=== PATIENT | female | born 1975 | race Caucasian/White ===

== ENCOUNTER 2018-10-24 16:33 | Emergency (ER) | payer SELFPAY ==
[~2018-10-24] VITALS: Ht 157.5 cm; Wt 63.5 kg
[2018-10-24] MEDS ORDERED: IV NORMAL SALINE 1000ML BAG 1,000 ML IV ONE ×2 (17:15)
[2018-10-24 17:21] LABS: BASO # 0.1 x10^3/uL (0.0-0.2); BASO % 1 % (0-3); EOS % 1 % (0-3); HEMATOCRIT 34.7 % (36.0-47.0); HEMOGLOBIN 11.7 g/dL (12.0-15.5); LYMPH # 1.3 x10^3/uL (1.0-4.8); LYMPH % 21 % (24-48); MEAN CORPUSCULAR HEMOGLOBIN 31 pg (25-35); MEAN CORPUSCULAR HGB CONC 34 g/dL (31-37); MEAN CORPUSCULAR VOLUME 90 fL (79-100); MONO # 0.7 x10^3/uL (0.0-1.1); MONO % 12 % (0-9); NEUT # 3.9 x10^3uL (1.8-7.7); NEUT % 65 % (31-73); PLATELET COUNT 382 x10^3/uL (140-400); RED BLOOD COUNT 3.84 x10^6/uL (3.50-5.40); RED CELL DISTRIBUTION WIDTH 13.2 % (11.5-14.5)
[2018-10-24 17:23] LABS: BILIRUBIN,URINE NEGATIVE (NEG); CLARITY,URINE CLEAR; COLOR,URINE YELLOW; NITRITE,URINE NEGATIVE (NEG); PROTEIN,URINE NEGATIVE (NEG-TRACE)
--- NOTE | 2018-10-24 17:25 | PHYS DOC ---
Adult General Chief Complaint Chief Complaint: HALLUCINATIONS AUDIBLE/VISUAL HPI HPI 43-year-old female presents to ER for complaints of visual and auditory hallucinations. Patient states she has history of bipolar and PTSD and last week was started on risperidone and propanolol. Patient states over the past week she has had hallucinations start denying any voices telling her to harm herself or others. Patient states she has had increased anxiety, decreased appetite, and restlessness at night. Patient states she is seeing things that are not there. Pt's significant other Mauro is at bedside and reports pt has been confused on events- he denies lethargy or decreased LOC. He reports she has just saying things that aren't correct and then when he informs her of this she realizes she wasn't making sense with what she had said. Pt denies fever, urinary sxs, or CP/palpitations. She denies any recent travel. She denies any suicidal ideations. She denies past history of suicidal attempts or ideations. LMP 1 week ago. Patient denies any alcohol or illicit drug use. Patient states she vapes daily. Pt has c/o rt leg injury last week- she reports she was kicking a soccer ball and fell and since has had rt leg bruising to inner right thigh with swelling/pain in extremity. She denies striking her head or having any head/neck/back pain. (LATIA SINGLETON APRN) Review of Systems Review of Systems Constitutional: Denies fever or chills [] Eyes: Denies change in visual acuity, redness, or eye pain [] HENT: Denies nasal congestion or sore throat [] Respiratory: Denies cough or shortness of breath [] Cardiovascular: No additional information not addressed in HPI [] GI: Denies abdominal pain, nausea, vomiting, bloody stools or diarrhea [] : Denies dysuria or hematuria [] Musculoskeletal: Denies back pain. Reports rt upper inner thigh pain/bruising/swelling Integument: Denies rash or skin lesions [] Neurologic: Denies headache, focal weakness or sensory changes [] Endocrine: Denies polyuria or polydipsia [] Psych: Reports auditory/visual hallucinations. Reports increased anxiety/sleep pattern disturbances. Denies SI/HI All other systems were reviewed and found to be within normal limits, except as documented in this note. (LATIA SINGLETON APRN) Current Medications Current Medications Current Medications Medications (Trade) Dose Ordered Sig/Thanh Start Time Stop Time Status Last Admin Dose Admin Lorazepam (Ativan) 1 mg 1X ONCE 10/24/18 17:15 10/24/18 17:21 DC 10/24/18 17:39 1 MG Potassium Chloride (Klor-Con) 40 meq 1X ONCE 10/24/18 19:00 10/24/18 19:01 DC 10/24/18 19:18 40 MEQ Sodium Chloride 1,000 ml @ 1,000 mls/hr 1X ONCE 10/24/18 17:15 10/24/18 18:14 DC 10/24/18 18:30 1,000 MLS/HR (JIMENA BRANDT MD) Allergies Allergies Allergies Coded Allergies Type Severity Reaction Last Updated Verified No Known Drug Allergies 10/24/18 No (JIMENA BRANDT MD) Physical Exam Physical Exam Constitutional: Well developed, well nourished, no acute distress, non-toxic appearance. [] HENT: Normocephalic, atraumatic, bilateral ears normal, mucous membranes pink/d ry, no oral exudates, nose normal. [] Eyes: PERRLA, no nystagmus, conjunctiva normal, no discharge. [] Neck: Normal range of motion, no tenderness, supple, no stridor. [] Cardiovascular: Tachycardic heart rate regular rhythm, no murmur [] Lungs & Thorax: Bilateral breath sounds clear to auscultation- resp. equal /nonlabored Abdomen: Bowel sounds normal, soft, no tenderness/distention, no masses, no pulsatile masses. [] Skin: Warm, dry, no erythema, no rash. [] Back: No tenderness, no CVA tenderness. [] Extremities: No tenderness, no cyanosis, no clubbing, ROM intact, no edema. [] Neurologic: Alert and oriented X 3, normal motor function, normal sensory function, no focal deficits noted. [] Psychologic: Affect normal, judgement normal, anxious/restless during exam- cooperative and no uncontrollable behavior (LATIA SINGLETON APRN) Current Patient Data Vital Signs Vital Signs Date Time Temp Pulse Resp B/P (MAP) Pulse Ox O2 Delivery O2 Flow Rate FiO2 10/24/18 19:45 119 17 113/77 (89) 98 Room Air 10/24/18 17:00 98.3 98.3 (JIMENA BRANDT MD) Lab Values Laboratory Tests Test 10/24/18 16:45 10/24/18 17:15 Urine Collection Type Unknown Urine Color Yellow Urine Clarity Clear Urine pH 6.0 Urine Specific [place] 1.025 Urine Protein Negative mg/dL (NEG-TRACE) Urine Glucose (UA) Negative mg/dL (NEG) Urine Ketones (Stick) Trace mg/dL (NEG) Urine Blood Negative (NEG) Urine Nitrite Negative (NEG) Urine Bilirubin Negative (NEG) Urine Urobilinogen Dipstick 1.0 mg/dL (0.2 mg/dL) Urine Leukocyte Esterase Small (NEG) Urine RBC 0 /HPF (0-2) Urine WBC 1-4 /HPF (0-4) Urine Squamous Epithelial Cells Many /LPF Urine Bacteria Moderate /HPF (0-FEW) Urine Mucus Marked /LPF Urine Test Negative (NEG) Urine Opiates Screen Neg (NEG) Urine Methadone Screen Neg (NEG) Urine Barbiturates Neg (NEG) Urine Phencyclidine Screen Neg (NEG) Urine Amphetamine/Methamphetamine Pos (NEG) Urine Benzodiazepines Screen Neg (NEG) Urine Cocaine Screen Neg (NEG) Urine Cannabinoids Screen Neg (NEG) Urine Ethyl Alcohol Neg (NEG) White Blood Count 6.0 x10^3/uL (4.0-11.0) Red Blood Count 3.84 x10^6/uL (3.50-5.40) Hemoglobin 11.7 g/dL (12.0-15.5) L Hematocrit 34.7 % (36.0-47.0) L Mean Corpuscular Volume 90 fL (79-100) Mean Corpuscular Hemoglobin 31 pg (25-35) Mean Corpuscular Hemoglobin Concent 34 g/dL (31-37) Red Cell Distribution Width 13.2 % (11.5-14.5) Platelet Count 382 x10^3/uL (140-400) Neutrophils (%) (Auto) 65 % (31-73) Lymphocytes (%) (Auto) 21 % (24-48) L Monocytes (%) (Auto) 12 % (0-9) H Eosinophils (%) (Auto) 1 % (0-3) Basophils (%) (Auto) 1 % (0-3) Neutrophils # (Auto) 3.9 x10^3uL (1.8-7.7) Lymphocytes # (Auto) 1.3 x10^3/uL (1.0-4.8) Monocytes # (Auto) 0.7 x10^3/uL (0.0-1.1) Eosinophils # (Auto) 0.0 x10^3/uL (0.0-0.7) Basophils # (Auto) 0.1 x10^3/uL (0.0-0.2) Prothrombin Time 14.6 SEC (11.7-14.0) H Prothrombin Time INR 1.2 (0.8-1.1) H PTT 31 SEC (24-38) Sodium Level 139 mmol/L (136-145) Potassium Level 2.9 mmol/L (3.5-5.1) *L Chloride Level 99 mmol/L (98-107) Carbon Dioxide Level 28 mmol/L (21-32) Anion Gap 12 (6-14) Blood Urea Nitrogen 17 mg/dL (7-20) Creatinine 0.8 mg/dL (0.6-1.0) Estimated GFR (Cockcroft-Gault) 79.0 BUN/Creatinine Ratio 21 (6-20) H Glucose Level 106 mg/dL (70-99) H Calcium Level 9.2 mg/dL (8.5-10.1) Magnesium Level 1.7 mg/dL (1.8-2.4) L Total Bilirubin 0.7 mg/dL (0.2-1.0) Aspartate Amino Transferase (AST) 15 U/L (15-37) Alanine Aminotransferase (ALT) 13 U/L (14-59) L Alkaline Phosphatase 42 U/L (46-116) L Creatine Kinase 90 U/L (26-192) Creatine Kinase MB (Mass) < 0.5 ng/mL (0.0-3.6) Creatine Kinase MB Relative Index % (0-4) Troponin I Quantitative < 0.017 ng/mL (0.000-0.055) Total Protein 7.6 g/dL (6.4-8.2) Albumin 4.0 g/dL (3.4-5.0) Albumin/Globulin Ratio 1.1 (1.0-1.7) Ethyl Alcohol Level < 10 mg/dL (0-10) Laboratory Tests 10/24/18 17:15 Laboratory Tests 10/24/18 17:15 Microbiology 10/24/18 Urine Culture - Final, Complete 10/24/18 Urine Culture Result 1 (BENJI) - Final, Complete (JIMENA BRANDT MD) Lab Values Microbiology 10/24/18 Urine Culture - Final, Complete 10/24/18 Urine Culture Result 1 (BENJI) - Final, Complete (LATIA SINGLETON APRN) EKG EKG EKG obtained 10/24/18 at 1738 Interpreted by ER physician ST Rate 111 No STEMI (LATIA SINGLETON APRN) Radiology/Procedures Radiology/Procedures PROCEDURE: VENOUS LOWER EXTREMITY RIGHT Right lower extremity venous doppler ultrasound Indication: Right upper leg bruising and pain for 6 days Technique: Color Doppler, grayscale, and spectral waveform analysis is used to evaluate the right femoral and popliteal veins. Findings: No evidence of deep venous thrombosis. Normal response to augmentation, normal compressibility and normal phasicity is demonstrated. Visualized calf veins are patent. Impression: Negative for deep venous thrombosis Electronically signed by: Gene Multani MD (10/24/2018 7:29 PM) [facility] DICTATED and SIGNED BY: GENE MULTANI MD DATE: 10/24/181928 (LATIA SINGLETON APRN) Course & Med Decision Making Course & Med Decision Making Pertinent Labs and Imaging studies reviewed. (See chart for details) 1850: Patient's UDS came back positive for amphetamines this was discussed with the patient. Patient states she started phentermine yesterday for dieting and just didn't mention during initial exam. In-depth conversation had with patient and her fianc regarding patient's complaints of hallucinations which have been ongoing for the past few days and then adding another medication such as diet pills which can intensify anxiety and cause patient to have other medical issues. Discussed test results with EKG showing no acute ST elevation or STEMI and troponin was <0.017. She has been given 2 L IV fluids and dose of Ativan for anxiety. Patient remains restless and fidgety at bedside. Discussed admission as her potassium is 2.8 and she remains tachycardic on the monitor at 115 to 120s. Patient states she is not wanting to be admitted and is preferring to be discharged. Discussion had with patient regarding tachycardic rhythm and hypo kalemia- discussed AMA and risk of leaving without further monitoring and benefits of admission. Patient verbalized understanding but is still stating she is wanting to be discharged. Patient's ultrasound report is pending. Patient and her fianc are wanting to discuss admission vs being discharged among themselves prior to making decision. 1940: Discussed patient's ultrasound with her with no acute findings for DVT. Patient remains PMS intact in bilateral lower extremities. Again discussed adm ission as pt's HR is 120-130s. She is denying any CP/palpitations. She reports she is going to leave AMA as she isn't wanting to be admitted. Pt has denied any SI and has had no uncontrollable behavior. She was given IV Ativan and 2L NS IV bolus. Pt was provided with K+ 40 meq as her K+ was 2.8. Again discussed risk of leaving AMA benefits of admission. Patient verbalized understanding but is not willing to be admitted at this time. Advised patient if symptoms worsen or with concerns to return to ER for further evaluation and care. Advised patient on need to follow-up with her psychiatrist to further discuss medication she had stopped taking. Patient's fianc was at bedside during discussion. Advised patient to avoid diet pills as that may increase her anxiety and restlessness as well as cause additional electrolyte imbalance. Pt was A&Ox3 at time of discussion and had no alteration in mental status while in the ER. She didn't appear to be having hallucinations or talking to voices during discussion. Pt advised to f/u with her doctor tomorrow or if sxs worsen or with concerns she should return to ER or seek immediate assist/care. (LATIA SINGLETON APRN) Course & Med Decision Making Staff Physician Addendum: I was working in the ER during the course of this patient's visit. I was available for consultation as needed, but I was not directly involved in the care of this patient. (JIMENA BRANDT MD) Dragon Disclaimer Dragon Disclaimer This electronic medical record was generated, in whole or in part, using a voice recognition dictation system. (LATIA SINGLETON APRN) Departure Departure Impression: Primary Impression: Left against medical advice Additional Impressions: Hallucinations Anxiety Hypokalemia Disposition: 07 AGAINST MEDICAL ADVICE Patient Instructions: Anxiety and Panic Attacks, Discharge Against Medical Advice, Hallucinations and Delusions, Hypokalemia Additional Instructions: Drink plenty of fluids. Avoid diet pills as that may make your symptoms worsen. Your potassium was 2.8- this needs to be rechecked in 2-3 days. Follow-up with Psychiatrist to further discuss medications. Problem Qualifiers LATIA SINGLETON APRN October 24, 2018 17:25 JIMENA BRANDT MD November 02, 2018 22:14
[2018-10-24 17:29] LABS: BARBITURATES NEG (NEG); BENZODIAZEPINES NEG (NEG); CANNABINOIDS NEG (NEG); COCAINE NEG (NEG); METHADONE NEG (NEG); OPIATES NEG (NEG); PHENCYCLIDINE NEG (NEG)
[2018-10-24 17:30] LABS: BACTERIA,URINE MODERATE /HPF (0-FEW); RBC,URINE 0 /HPF (0-2); SQUAMOUS EPITHELIAL CELL,UR MANY /LPF
[2018-10-24 17:30] LABS: PROTHROMBIN TIME PATIENT 14.6 SEC (11.7-14.0)
[2018-10-24 17:33] LABS: AMPHETAMINE/METHAMPHETAMINE POS (NEG)
[2018-10-24 17:57] LABS: ALBUMIN/GLOBULIN RATIO 1.1 (1.0-1.7); CALCIUM 9.2 mg/dL (8.5-10.1); CREATININE 0.8 mg/dL (0.6-1.0); MAGNESIUM 1.7 mg/dL (1.8-2.4); TOTAL BILIRUBIN 0.7 mg/dL (0.2-1.0); TOTAL PROTEIN 7.6 g/dL (6.4-8.2)
[2018-10-24 18:00] LABS: POTASSIUM 2.9 mmol/L (3.5-5.1)
[2018-10-24 18:09] LABS: U PREG PATIENT NEGATIVE (NEG)
[2018-10-24 18:09] LABS: CREATINE KINASE 90 U/L (26-192)
[2018-10-24] MEDS ORDERED: POTASSIUM CHLORIDE 20 MEQ TABLET.ER. PO ONE (19:00)
--- NOTE | 2018-10-24 19:32 | RAD ---
Right lower extremity venous doppler ultrasound Indication: Right upper leg bruising and pain for 6 days Technique: Color Doppler, grayscale, and spectral waveform analysis is used to evaluate the right femoral and popliteal veins. Findings: No evidence of deep venous thrombosis. Normal response to augmentation, normal compressibility and normal phasicity is demonstrated. Visualized calf veins are patent. Impression: Negative for deep venous thrombosis Electronically signed by: Gene Talbot MD (10/24/2018 7:29 PM) [facility]
[2018-10-24 19:45] VITALS: BP 113/77
--- NOTE | 2018-10-25 08:17 | EKG ---
[facility] [address] [place] [address] Test Date: 2018-10-24 Test Time: 17:38:40 Pat Name: ROSCOE BULLOCK Department: Room: Gender: F [employer]: : [id number] Requested By: LATIA SINGLETON Order Number: [id number] Reading MD: Kamari Robert MD Measurements Intervals Delta Rate: 111 P: 43 AR: 156 QRS: 28 QRSD: 76 T: 11 QT: 314 QTc: 430 Interpretive Statements SINUS TACHYCARDIA Electronically Signed On 10-28-2018 14:05:16 CDT by Kamari Robert MD
== END 2018-10-24 20:08 | disposition left against medical advice (07) ==
LOC: ER 16:33
DX: S70.11XA Contusion of right thigh, initial encounter (principal); F41.9 Anxiety disorder, unspecified; R44.0 Auditory hallucinations; E87.6 Hypokalemia; R22.41 Localized swelling, mass and lump, right lower limb; R00.0 Tachycardia, unspecified; F31.9 Bipolar disorder, unspecified; F43.10 Post-traumatic stress disorder, unspecified; W18.39XA Other fall on same level, initial encounter; Y93.66 Activity, soccer; Y92.89 Other specified places as the place of occurrence of the external cause; Y99.8 Other external cause status
CPT/HCPCS: 36415; 80053; 80307; 81001; 81025; 82553; 83735; 84484; 85025; 85610; 85730; 87086; 93005; 93971; 96374; 99285; G0480; J2060; J7030; 56420; 99284-25